=== PATIENT | male | born 1980 | race Caucasian/White ===

== ENCOUNTER 2018-07-03 02:57 | Emergency (ER) | payer OTHER, SELFPAY ==
[2018-07-03 03:01] VITALS: BP 145/85; PULSE 88; RESP 12; TEMP 36.8; O2SAT 100; BMI 21.1
[2018-07-03] MEDS: SODIUM CHLORIDE 0.9% 1,000 ML 1000 ML IV (03:25)
[2018-07-03 03:41] LABS: Add Manual Diff / Slide Review NO; Basophils Percent Auto 0.7 % (0-2); Eosinophils Percent Auto 2.8 % (2-4); Hematocrit 47.2 % (41-53); Hemoglobin 16.2 g/dL (13.5-17.5); Lymphocytes Percent Auto 30.9 % (25-40); Mean Corpuscular HGB Conc 34.3 % (30-36); Mean Corpuscular Hemoglobin 30.3 PG (26-34); Mean Corpuscular Volume 88.2 fL (80-100); Monocytes Percent Auto 8.3 % (3-14); Neutrophils Absolute Auto 3500 /uL (3000-5900); Neutrophils Percent Auto 57.3 % (50-75); Platelet Count 251 X10^3/uL (150-400); Red Blood Cell Count 5.35 X10^6/uL (4.5-5.9); Red Cell Distribution Width 12.4 % (11.6-14.8); White Blood Cell Count 6.1 X10^3/uL (4.5-11.0)
[2018-07-03 03:51] LABS: BUN Creatinine Ratio 18.6 (6-22); Blood Urea Nitrogen 13 mg/dL (9-20); Calcium 9.3 mg/dL (8.4-10.2); Carbon Dioxide 28 mmol/L (22-32); Chloride 105 mmol/L (98-107); Estimated Glomerular Filt Rate > 60.0 mL/min (>60); Glucose 101 mg/dL (70-100); HEMOLYSIS < 15 (0-50); Sodium 142 mmol/L (137-145)
[2018-07-03 04:00] VITALS: BP 126/85; PULSE 86; RESP 16; O2SAT 99
[2018-07-03 04:02] LABS: Troponin I < 0.012 ng/mL (0.01-0.034)
--- NOTE | 2018-07-03 04:25 | ED_ITS ---
HPI - Dizziness General Chief Complaint: Dizziness Stated Complaint: nausea numbness waist up 24 hrs+ Time Seen by Provider: 07/03/18 03:09 Source: patient Mode of arrival: ambulatory Limitations: no limitations History of Present Illness HPI Narrative: The patient was at work earlier tonight. He developed sudden onset of weakness and dizziness. He did not feel like he was going to pass out. He had no chest pain or palpitations. He denies dyspnea. This is happened recently before, but not to the severity. His significant other left him about 1 month ago with their child. He still sees the child. Since that time he has lost a significant amount of weight. He has significant insomnia. He finds himself crying at times. Regarding the dizziness, has lost his appetite, he is not drinking an appropriate amount of fluids. He works nights without appropriate rest. He has no prior history of depression or anxiety. He feels tremendously stressed. There are no obvious issues at work. Related Data Previous Rx's Medication Instructions Recorded sertraline [Zoloft] 50 mg PO DAILY #30 tab 07/03/18 Allergies Allergy/AdvReac Type Severity Reaction Status Date / Time No Known Drug Allergies Allergy Verified 07/03/18 03:07 Review of Systems Review of Systems All systems reviewed & are unremarkable except as noted in HPI and below Constitutional Denies chills, Reports fatigue, Denies fever(s), Reports lethargy, Reports poor appetite and Denies weakness Eyes Denies change in vision, Denies eye discharge, Denies irritation and Denies loss of vision ENT Ears, Nose, Mouth, and Throat: Denies sore throat and Denies throat swelling Cardiovascular Denies chest pain, Denies irregular heart rhythm, Denies lightheadedness, Denies palpitations, Denies dyspnea, Denies dyspnea on exertion and Denies orthopnea Respiratory Denies cough, Denies dyspnea, Denies dyspnea on exertion and Denies wheezing Gastrointestinal Gastrointestinal: Denies abdominal pain, Denies change in bowel habits, Denies diarrhea, Denies nausea and Denies vomiting Genitourinary Denies dysuria Musculoskeletal Denies back pain, Denies muscle weakness, Denies numbness and Denies tingling Integumentary/Breasts Denies erythema, Denies rash and Denies wounds Neurologic Denies loss of vision, Denies numbness, Denies tingling and Denies weakness Endocrine Reports fatigue and Denies palpitations Allergic/Immunologic Denies throat swelling and Denies wheezing PFSH Medical History Healthy adult (Acute) Social History Smoking Status: Never smoker alcohol intake: current substance use type: does not use Exam Initial Vital Signs Initial Vital Signs: Vital Signs Temperature 98.3 F 07/03/18 03:01 Pulse Rate 88 07/03/18 03:01 Respiratory Rate 12 07/03/18 03:01 Blood Pressure 145/85 H 07/03/18 03:01 Pulse Oximetry 100 07/03/18 03:01 Const General: cooperative, healthy appearing, comfortable, well developed, well groomed and anxious Nutritional Appearance: average body habitus Orientation: alert, awake and oriented x3 HENMT Mouth: oral mucosae normal Throat: posterior oropharynx normal Eyes General: appearance normal, both eyes and all related structures Eyelids: eyelids normal Conjunctivae: conjunctivae normal Sclera: sclerae normal Pupils: PERRL EOM: EOM intact bilaterally Neck Neck: trachea midline and No lymphadenopathy Thyroid: thyroid normal Chest Chest: No crepitus and other Resp Effort & Inspection: normal respiratory effort, able to speak in complete sentences, no respiratory distress and no use of accessory muscles Auscultation: clear to auscultation bilaterally, no rales, no rhonchi and no wheezes Cardio Rate: regular rate Rhythm: regular rhythm Heart Sounds: no click, no gallops, no murmurs and no rubs Pulses: normal peripheral pulses GI Inspection: non-distended Palpation: soft, no hepatosplenomegaly, No guarding, No pulsatile mass and No tender Auscultation: normal bowel sounds Back/Spine/Pelvis Back: No back tenderness and No CVA tenderness Skin General: no rashes or lesions noted and No petechiae Neuro General: alert, oriented x3, gait normal and no focal motor deficits Speech: speech normal Extrem General: full ROM, no pedal edema and no calf tenderness Psych Appearance: well kempt Mental Status: mental status grossly normal Speech and Movement: speech and movement normal Mood: anxious mood Affect: normal affect Attitude: cooperative Thought Process: normal Thought Content: no delusions, no hallucinations and no homicidality Judgment: judgment good Course Orders Ordered: ED Orders 07/03/18 03:10 EKG-12 Lead Stat 07/03/18 03:30 Basic Metabolic Panel Stat Complete Blood Count AUTO DIFF Stat Troponin I Stat Discontinued Medications Sodium Chloride (Normal Saline 0.9%) 1,000 mls @ 1,000 mls/hr IV BOLUS ONE Stop: 07/03/18 04:14 Last Infusion: 07/03/18 04:15 Dose: 0 mls/hr Admin: 07/03/18 03:25 Dose: 1,000 mls/hr Vital Signs - 8 hr 07/03/18 03:01 07/03/18 04:00 Temperature 98.3 F Pulse Rate 88 86 Respiratory Rate 12 16 Blood Pressure 145/85 H Blood Pressure [Left Arm] 126/85 Pulse Oximetry 100 99 MDM - Dizziness Lab Data Result diagrams: 07/03/18 03:30 07/03/18 03:30 Lab Results 07/03/18 07/03/18 Range/Units 03:30 03:30 WBC 6.1 (4.5-11.0) X10^3/uL RBC 5.35 (4.5-5.9) X10^6/uL Hgb 16.2 (13.5-17.5) g/dL Hct 47.2 (41-53) % MCV 88.2 (80-100) fL MCH 30.3 (26-34) PG MCHC 34.3 (30-36) % RDW 12.4 (11.6-14.8) % Plt Count 251 (150-400) X10^3/uL Neut % (Auto) 57.3 (50-75) % Lymph % (Auto) 30.9 (25-40) % [place] % (Auto) 8.3 (3-14) % Eos % (Auto) 2.8 (2-4) % Baso % (Auto) 0.7 (0-2) % Neut # (Auto) 3500 (8349-8341) /uL Sodium 142 (137-145) mmol/L Potassium 4.0 (3.4-5.1) mmol/L Chloride 105 (98-107) mmol/L Carbon Dioxide 28 (22-32) mmol/L BUN 13 (9-20) mg/dL Creatinine 0.70 (0.66-1.25) mg/dL Estimated GFR > 60.0 (>60) mL/min BUN/Creatinine Ratio 18.6 (6-22) Glucose 101 H (70-100) mg/dL Calcium 9.3 (8.4-10.2) mg/dL Troponin I < 0.012 (0.01-0.034) ng/mL ECG Data Attestation: I personally reviewed and interpreted this ECG as follows: (Normal sinus rhythm rate 85 bpm. Possible right ventricular conduction delay. Normal intervals. No acute ST T wave changes. No acute findings.) MDM Narrative Medical decision making narrative: The patient agrees that he is stressed, and that he feels depressed. He has no prior history of depression. His depression is likely situational with the departure of his significant other and his child. I have agreed to start him on Zoloft, he needs to seek a primary care doctor for follow through. Discharge Plan Departure Patient Disposition: Home Clinical Impression: Depression Discharge Date/Time: 07/03/18 04:33 Interventions: ED Discharge Assessment Last Done: 07/03/18 04:33 Instructions: Depression Activity Restrictions/Additional Instructions: Zoloft 50 mg daily Drink plenty of water, stay well hydrated. Return to the ER as needed. Establish care with a local physician, you should have someone re-evaluate you progress within about 2-3 weeks. Prescriptions: New sertraline [Zoloft] 50 mg tablet 50 mg PO DAILY Qty: 30 RF: 1 Stand Alone Forms: Work/School Restrictions
== END 2018-07-03 04:33 | disposition home or self-care (01) ==
PROVIDERS: Emergency Provider Emergency Medicine
DX: F32.9 Major depressive disorder, single episode, unspecified (principal)
CPT/HCPCS: 36591; 80048; 84484; 85025; 93005; 93010; 96360; 99283; 99284

== ENCOUNTER → 2020-12-06 09:07 | Outpatient (CLI) | payer OTHER, SELFPAY ==
[2020-12-06 10:34] LABS: Add Manual Diff / Slide Review NO; Basophils Absolute Auto 0 /uL (0-100); Basophils Percent Auto 0.3 % (0-2); Eosinophils Absolute Auto 100 /uL (0-450); Eosinophils Percent Auto 2.2 % (2-4); Hematocrit 52.6 % (41-53); Hemoglobin 17.5 g/dL (13.5-17.5); Lymphocytes Absolute Auto 1200 /uL (1100-4500); Lymphocytes Percent Auto 17.9 % (25-40); Mean Corpuscular HGB Conc 33.3 % (30-36); Mean Corpuscular Hemoglobin 30.7 PG (26-34); Mean Corpuscular Volume 92.3 fL (80-100); Monocytes Absolute Auto 400 /uL (0-900); Monocytes Percent Auto 6.7 % (3-14); Neutrophils Absolute Auto 4800 /uL (1500-7000); Neutrophils Percent Auto 72.9 % (50-75); Platelet Count 280 X10^3/uL (150-400); White Blood Cell Count 6.6 X10^3/uL (4.5-11.0)
[2020-12-06 10:43] LABS: Urine N gonorrhoeae NOT DETECTED
[2020-12-06 10:46] LABS: Urine Chlamydia DETECTED
[2020-12-06 11:01] LABS: Alanine Aminotransferase 42 IU/L (<50); Albumin Globulin Ratio 1.3 (1.0-2.8); Alkaline Phosphatase 88 U/L (38-126); Aspartate Aminotransferase 39 IU/L (17-59); BUN Creatinine Ratio 23.2 (6-22); Bilirubin Total 0.7 mg/dL (0.2-1.3); Blood Urea Nitrogen 16 mg/dL (9-20); Carbon Dioxide 33 mmol/L (22-32); Chloride 100 mmol/L (98-107); Creatine Kinase 108 U/L (55-170); Estimated Glomerular Filt Rate > 60.0 mL/min (>60); Glucose 88 mg/dL (70-100); HEMOLYSIS < 15 (0-50); Lipase 62 U/L (23-300); Potassium 3.9 mmol/L (3.4-5.1); Sodium 138 mmol/L (137-145)
[2020-12-06 11:13] LABS: Troponin I < 0.012 ng/mL (0.01-0.034)
[2020-12-06 11:16] LABS: CKMB % Relative Index 2.3 % (1.5-5.0); Creatine Kinase MB 2.44 ng/mL (<2.37)
[2020-12-06 11:46] LABS: Hepatitis B Surface Antigen NEGATIVE s/c (NEGATIVE)
[2020-12-06 12:03] LABS: HIV 1 & 2 Ab/Ag 4th Gen Combo NEGATIVE (NEGATIVE); Hep C Virus Ab w/Reflex Quant NEGATIVE s/c (NEGATIVE)
[2020-12-07 06:18] LABS: HSV 2 IGG AB < 0.91 index (0.00-0.90); HSV1IGG < 0.91 index (0.00-0.90)
[2020-12-07 07:40] LABS: RPR Screen Non Reactive (Non Reactive)
== END ==
PROVIDERS: PCP Family Medicine; Visit Provider Nurse Practitioner
DX: R10.13 Epigastric pain (principal); Z11.3 Encounter for screening for infections with a predominantly sexual mode of transmission
CPT/HCPCS: 36415; 80053; 82550; 82553; 83690; 84484; 85025; 86592; 86695; 86696; 86803; 87340; 87389; 87491; 87591

== ENCOUNTER 2021-10-09 03:31 | Emergency (ER) | payer OTHER, SELFPAY ==
[2021-10-09 03:47] VITALS: BP 161/91; PULSE 86; RESP 16; TEMP 36.6; O2SAT 98; BMI 22.7
--- NOTE | 2021-10-09 03:58 | ED.WOUNDLAC ---
HPI - Wound/Laceration General Chief Complaint: Wound/Laceration Stated Complaint: left knee injured at work/glass in knee Time Seen by Provider: 10/09/21 03:48 Source: patient Mode of arrival: Ambulatory History of Present Illness HPI narrative: 40-year-old healthy male who presents with foreign object in his left knee. He says he knelt down at work and felt glass go in his knee. No numbness tingling or weakness. He can still feel it. Related Data Previous Rx's Medication Instructions Recorded sertraline 50 mg tablet (Zoloft) 50 mg PO DAILY #30 tab 07/03/18 azithromycin 500 mg tablet 1,000 mg PO ONCE #2 tab 12/06/20 Allergies Allergy/AdvReac Type Severity Reaction Status Date / Time No Known Drug Allergies Allergy Verified 12/06/20 08:55 Review of Systems Review of Systems Narrative: GENERAL: Denies chills,fever HEENT: Denies throat pain RESPIRATORY: Denies dyspnea, cough, wheezing CARDIOVASCULAR: Denies chest pain, palpitations GASTROINTESTINAL: Denies nausea, vomiting MUSCULOSKELETAL: Denies extremity pain, injury SKIN: See HPI NEUROLOGIC: Denies weakness, dizziness, headache, numbness 8 point review of systems is negative except for those stated above and HPI Patient History Medical History Healthy adult Social History (Updated 07/03/18 @ 06:04 by Elaido Rawls MD) Smoking Status: Never smoker alcohol intake: current substance use type: does not use Smoking Status: Never smoker alcohol intake frequency: a few times a week Substance Use Type: does not use Exam Initial Vital Signs Initial Vital Signs: Vital Signs Temperature 97.9 F 10/09/21 03:47 Pulse Rate 86 10/09/21 03:47 Respiratory Rate 16 10/09/21 03:47 Blood Pressure 161/91 H 10/09/21 03:47 Pulse Oximetry 98 10/09/21 03:47 GENERAL: Well-appearing, well-nourished and in no acute distress. CARDIOVASCULAR: peripheral pulses in tact, cap refill <2 sec RESPIRATORY: No respiratory distress, speaks in full sentences without difficulty EXTREMITIES: Normal range of motion, no clubbing or edema. Neurovascularly intact NEUROLOGICAL: Cranial nerves II through XII grossly intact. Normal gait and speech. SKIN: Small 1 cm laceration over left patellar area foreign object is felt underneath the skin but not seen. Procedures Foreign Body OTHER Foreign Body Removal Site: lower extremity (Left knee patellar) Description of foreign body: other (Glass) Sedation/Analgesia: none Technique: manual removal, removal with forceps and incision made to facilitate removal Confirmed by:: direct visualization Complications: none Post-procedure exam: awake, alert Neurovascular: normal distal pulse, distal light touch sensation intact and distal motor function normal Laceration Repair Laceration 1: Site: lower extremity Side (If applicable): left Size (cm): 1 Description: stellate Depth: simple, single layer Local Anesthetic: lidocaine 1% Amount of anesthesia used (mL): 4 Pre-repair: wound explored, irrigated extensively and deep structures intact Skin layer closed with: nylon Size (cm): 4-0 Number of sutures: 1 Technique: simple, interrupted Course Orders Ordered: Discontinued Medications Diphtheria/Tetanus/Acell Pertussis (Tet,Diph,Pertuss(Acell),Vac/Pf 0.5 Ml Syringe) 0.5 ml IM .ONCE ONE Stop: 10/09/21 04:02 Last Admin: 10/09/21 04:06 Dose: 0.5 ml Documented by: Lidocaine HCl (Lidocaine 1% (Pf)) 4 ml SUBCUT NOW ONE Stop: 10/09/21 04:02 Last Admin: 10/09/21 04:05 Dose: 4 ml Documented by: Vital Signs Vital signs: Vital Signs - 8 hr 10/09/21 03:47 10/09/21 04:44 Temperature 97.9 F Pulse Rate 86 81 Respiratory Rate 16 17 Blood Pressure 161/91 H 153/84 H Pulse Oximetry 98 97 MDM - Wound/Laceration MDM Narrative Medical decision making narrative: Patient had a piece of glass in the left knee that was felt is superficially. Incision was made to help guide glass out was eventually pushed out and forceps used to grasp it. 1 suture is placed for closure. At this time no need for antibiotics however I did educate patient on signs and symptoms of infection. Discharge Plan Departure Patient Disposition: Home Clinical Impression: Other foreign body or object entering through skin, initial encounter Instructions: DI for Removal of Foreign Body From Skin Activity Restrictions/Additional Instructions: *You have been diagnosed with foreign body removed from skin *What to do: Glass was removed. 1 suture was placed. Please have suture removed in about 5 days either walk-in clinic or you may return to the emergency department. Please follow L&I instructions as dictated by your employment. *Continue to take medications as directed *Follow up with your primary care provider in 2-3 days *Return to ER if you should have redness pus swelling pain or any new, worsening or concerning symptoms Prescriptions: No Action azithromycin 500 mg tablet 1,000 mg PO ONCE Qty: 2 0RF Rx Instructions: take all pills at once with food sertraline [Zoloft] 50 mg tablet 50 mg PO DAILY Qty: 30 1RF Referrals: Rylan Thomson DO [Primary Care Provider] -
[2021-10-09] MEDS: LIDOCAINE 1% (PF) 4 ML SUBCUT (04:05)
[2021-10-09] MEDS: TET,DIPH,PERTUSS(ACELL),VAC/PF 0.5 ML SYRINGE IM (04:06)
[2021-10-09 04:44] VITALS: BP 153/84; PULSE 81; RESP 17; O2SAT 97
== END 2021-10-09 04:45 | disposition home or self-care (01) ==
PROVIDERS: Emergency Provider Emergency Medicine; PCP Family Medicine
DX: S80.252A Superficial foreign body, left knee, initial encounter (principal); Z23 Encounter for immunization; W25.XXXA Contact with sharp glass, initial encounter; Y99.0 Civilian activity done for income or pay; Y93.89 Activity, other specified
CPT/HCPCS: 10120; 90471; 99282; 99283; 90715

== ENCOUNTER 2022-12-10 20:01 | Emergency (ER) | payer OTHER, SELFPAY ==
[2022-12-10 20:08] VITALS: BP 159/85; PULSE 88; RESP 18; TEMP 36.2; O2SAT 98; BMI 22.4
--- NOTE | 2022-12-10 21:05 | ED_ITS ---
HPI - Back Pain/Injury General Chief Complaint: Back Pain/Injury Stated Complaint: lt. side abd. bulg/back pain Time Seen by Provider: 12/10/22 20:58 Source: patient Limitations: no limitations History of Present Illness HPI Narrative: This is a 42-year-old male with complaint of low back pain that started last Wednesday the 06 of December. Patient states he was at work he went to [employer] and felt pain in the lower back particularly on the left side. It has been persistent. He was seen at the walk-in clinic got a shot of Toradol which he states was helpful but it has been persisting. He has been trying Tylenol and ibuprofen without much improvement. States he also noticed a bulge short in the left lower abdomen just above the inguinal area. He states it has been intermittent it has not been painful. He denies fevers chills, no chest pain or shortness breath no nausea or vomiting no issues with bowel movements. States no pain radiating down his leg. He states pain sort of comes around from the back towards the front. No numbness or tingling. No loss of bowel or bladder control. No retention. Patient denies any saddle anesthesia. Patient notes he is had some pain on and off in his back in the past but nothing persistent this long. He has seen a chiropractor before. He is never had any surgeries or interventions. He has a metal in his wrist. He states no daily medications. Denies any drug allergies. No tobacco, occasional alcohol, no illicit. He is accompanied with his girlfriend. Dr. Thomson is his primary care. He states this occurred at work at [employer]. Related Data Previous Rx's Medication Instructions Recorded sertraline 50 mg tablet (Zoloft) 50 mg PO DAILY #30 tabs 07/03/18 azithromycin 500 mg tablet 1,000 mg PO ONCE #2 tabs 12/06/20 cyclobenzaprine 10 mg tablet 10 mg PO TID PRN muscle spasm #10 12/10/22 tabs meloxicam 7.5 mg tablet 7.5 mg PO BID PRN pain #20 tabs 12/10/22 Allergies Allergy/AdvReac Type Severity Reaction Status Date / Time No Known Drug Allergies Allergy Verified 12/07/22 17:08 Review of Systems Review of Systems ROS Unobtainable: All systems reviewed & are unremarkable except as noted in HPI and below Patient History Medical History Healthy adult Social History Smoking Status: Never smoker alcohol intake: current substance use type: does not use Smoking Status: Never smoker alcohol intake frequency: a few times a week Substance Use Type: does not use Exam Narrative Exam Narrative: GENERAL: Alert and oriented x three, thin male in [id number] distress. HEENT: Head normocephalic, atraumatic, EOMI, pupils reactive, face symmetric, moist mucous membranes NECK: Supple, full range of motion CARDIOVASCULAR: Regular rate and rhythm without murmurs, rubs or gallops. RESPIRATORY: Breath sounds equal bilaterally, no wheezes rales or rhonchi. ABDOMEN: Soft, nontender. Normoactive bowel sounds all 4 quadrants. No guarding or rebound, rigidity, no mass, no obvious defect or hernia noted. No inguinal hernia. : No CVA tenderness BACK: No cervical, thoracic or lumbar vertebral point tenderness. Patient has slightly decreased range of motion. Patient's gait is slightly until. Rectal exam is deferred. Muscle strength is 5/5 in lower extremities, DTRs are 2/4 and lower extremities. Dorsalis pedis and tibialis pulses are 2+ and lower extremities. Sensation is intact in the lower extremities. EXTREMITIES: Normal range of motion, no clubbing or edema. Neurovascularly intact NEUROLOGICAL: Cranial nerves II through XII grossly intact. Moving all extremities SKIN: Warm, dry, no petechiae, no rashes or lesions. Initial Vital Signs Initial Vital Signs: Vital Signs Temperature 97.1 F L 12/10/22 20:08 Pulse Rate 88 12/10/22 20:08 Respiratory Rate 18 12/10/22 20:08 Blood Pressure 159/85 H 12/10/22 20:08 Pulse Oximetry 98 12/10/22 20:08 Oxygen Delivery Method 12/10/22 20:08 Course Orders Ordered: ED Orders 12/10/22 21:27 XR lumbar spine 2-3V Stat Discontinued Medications Diazepam (Diazepam 5 Mg Tablet) 5 mg PO NOW ONE Stop: 12/10/22 21:20 Last Admin: 12/10/22 21:35 Dose: 5 mg Documented By: GC Ketorolac Tromethamine (Ketorolac 30 Mg/Ml Vial) 30 mg IM NOW ONE Stop: 12/10/22 21:20 Last Admin: 12/10/22 21:35 Dose: 30 mg Documented By: CAITLIN Vital Signs Vital signs: Vital Signs - 8 hr 12/10/22 20:08 12/10/22 22:35 Temperature 97.1 F L 98 F Pulse Rate 88 70 Respiratory Rate 18 16 Blood Pressure 159/85 H 122/78 Pulse Oximetry 98 98 Oxygen Delivery Method Room Air Room Air MDM - Back Pain/Injury Imaging Data lspine xray: Radiologist's Impression: Travis Pritchett??42??M??1980 ? Allergy/Adv: No Known Drug Allergies Close Lumbar Spine X-Ray (Signed) Becka Montemayor - 12/10/22 EKG Rpt. 12/06/20 Launch?[place] [address] XRay Report Signed Patient: Travis Pritchett MR#: [id number] : 1980 Acct:[id number] Age/Sex: 42 / M Date of Service: 12/10/22 Loc: ED Accession Number: [id number] ?? Procedure: XR lumbar spine 2-3V Ordering Provider: Elo Disla D.O. PROCEDURE:? XR LUMBAR SPINE 2-3V ? INDICATIONS:? acute on chronic back pain ? TECHNIQUE:? 3 views of the lumbar spine were acquired.? ? COMPARISON:? None. ? FINDINGS:? ? Bones:? 5 jjf-led-dobwgej vertebrae are present.? There is normal bony alignment.? Mild multilevel posterior disc height loss.? No vertebral body compression fractures.? No suspicious bony lesions.? ? Soft tissues:? Overlying bowel gas pattern is normal.? No suspicious soft tissue calcifications.? ? ? IMPRESSION:? ? 1. Mild multilevel disc degeneration. ? 2. No visible fractures or pathologic subluxation.? ? ? Dictated by: Becka Montemayor M.D. on 12/10/2022 at 22:08 ? ? Approved by: Becka Montemayor M.D. on 12/10/2022 at 22:08?? MDM Narrative Medical decision making narrative: This is a 42-year-old male with acute on chronic left low back pain. Patient does not have any red flag symptoms. It is work-related he is had some persistent issues in the past x-ray was ordered. Patient was concerned about bulge sounds like a hernia he states it sort of slipped back in while he has been here I am not able to easily palpate it but he may have a small hernia. We discussed need for follow-up if persisting or he notices it again and return precautions, including red flag symptoms. Discharge Plan Departure Patient Disposition: Home Clinical Impression: Lumbar back pain Instructions: DI for Back Strain or Sprain Activity Restrictions/Additional Instructions: Please follow-up for recheck. Please call for an appointment. You can take Tylenol up to a 1000 mg every 6 hours. You can take Meloxicam with Tylenol, 1 tablet every 12 hours as needed for pain. You may take Flexeril 1 tablet every 8 hours as needed for spasm. This medication can make you sleepy do not drive, form has activities or make any major decisions while taking it. Prescription sent to [facility] in [place]. Please return for rapidly worsening symptoms loss of sensation, new weakness inability to lift or move your leg, loss of bowel or bladder control, lumps or masses that are stuck or protruding and are painful, persistent vomiting or other new or concerning changes. Prescriptions: New meloxicam 7.5 mg tablet 7.5 mg PO BID PRN (Reason: pain) Qty: 20 0RF cyclobenzaprine 10 mg tablet 10 mg PO TID PRN (Reason: muscle spasm) Qty: 10 0RF No Action azithromycin 500 mg tablet 1,000 mg PO ONCE Qty: 2 0RF Rx Instructions: take all pills at once with food sertraline [Zoloft] 50 mg tablet 50 mg PO DAILY Qty: 30 1RF Referrals: Rylan Thomson DO [Primary Care Provider] - Stand Alone Forms: Patient Portal/API, Work Release Note
--- NOTE | 2022-12-10 21:27 | DI.RAD.S_ITS ---
PROCEDURE: XR LUMBAR SPINE 2-3V INDICATIONS: acute on chronic back pain TECHNIQUE: 3 views of the lumbar spine were acquired. COMPARISON: None. FINDINGS: Bones: 5 [id number] vertebrae are present. There is normal bony alignment. Mild multilevel posterior disc height loss. No vertebral body compression fractures. No suspicious bony lesions. Soft tissues: Overlying bowel gas pattern is normal. No suspicious soft tissue calcifications. IMPRESSION: 1. Mild multilevel disc degeneration. 2. No visible fractures or pathologic subluxation. Dictated by: Becka Montemayor M.D. on 12/10/2022 at 22:08 Approved by: Becka Montemayor M.D. on 12/10/2022 at 22:08
[2022-12-10] MEDS: KETOROLAC 30 MG/ML VIAL IM (21:35)
[2022-12-10] MEDS: diazePAM 5 MG TABLET PO (21:35)
[2022-12-10 22:35] VITALS: BP 122/78; PULSE 70; RESP 16; TEMP 36.6; O2SAT 98
--- NOTE | 2022-12-11 17:48 | PC.NURSE ---
Received call from [facility] requesting report of imaging completed during [facility] ED visit. Faxed to [phone] for continuity of care
== END 2022-12-10 21:35 | disposition home or self-care (01) ==
PROVIDERS: Emergency Provider Emergency Medicine; PCP Family Medicine
DX: S39.012A Strain of muscle, fascia and tendon of lower back, initial encounter (principal); X50.9XXA Other and unspecified overexertion or strenuous movements or postures, initial encounter
CPT/HCPCS: 72100; 96372; 99283; J1885

== ENCOUNTER 2025-01-19 18:34 | Emergency (ER) | payer OTHER, SELFPAY ==
[2025-01-19] VITALS (7 sets, daily range): BP systolic 126–148; BP diastolic 77–83; PULSE 83–109; RESP 16–20; TEMP 37.9–39.6; O2SAT 95–97; BMI 21.1
[2025-01-19] MEDS: ACETAMINOPHEN 325 MG TABLET 975 MG PO (18:50)
[2025-01-19 19:25] LABS: Influenza A - CEPHEID Flu A NEGATIVE (NEGATIVE); Influenza B - CEPHEID Flu B POSITIVE (NEGATIVE); Respiratory Syncytial Virus Negative (Negative)
[2025-01-19 19:32] LABS: COVID-19 CEPHEID 4-PLEX PCR Negative (Negative)
--- NOTE | 2025-01-19 21:37 | ED_ITS ---
HPI - General Adult General Chief complaint: Upper Respiratory Symptoms Stated complaint: fever, coughing, weak, BLAKE Time Seen by Provider: 01/19/25 20:35 Source: patient Mode of arrival: Ambulatory History of Present Illness HPI narrative: Otherwise healthy 44-year-old gentleman with viral symptoms for 5-6 days. Initially did have some fevers was feeling better went back to work today and got significantly worse. Had a fever to 103 which is higher than original fevers and increasingly feeling weak. More productive cough, he has not having chest pain, abdominal pain, diarrhea. Related Data Previous Rx's Medication Instructions Recorded sertraline 50 mg tablet (Zoloft) 50 mg PO DAILY #30 tabs 07/03/18 azithromycin 500 mg tablet 1,000 mg (2 x 500 mg) PO ONCE #2 12/06/20 tabs cyclobenzaprine 10 mg tablet 10 mg PO TID PRN muscle spasm #10 12/10/22 tabs meloxicam 7.5 mg tablet 7.5 mg PO BID PRN pain #20 tabs 12/10/22 benzonatate 200 mg capsule 200 mg PO BID-TID PRN cough #14 01/19/25 caps doxycycline hyclate 100 mg capsule 100 mg PO BID #20 caps 01/19/25 Allergies Allergy/AdvReac Type Severity Reaction Status Date / Time No Known Drug Allergies Allergy Verified 12/07/22 17:08 Review of Systems Review of Systems Narrative: Pertinent positive and negative findings as per HPI Patient History Medical History Healthy adult Social History Smoking Status: Never smoker alcohol intake: current substance use type: does not use Smoking Status: Never smoker alcohol intake frequency: a few times a week Exam Initial Vital Signs Initial Vital Signs: Vital Signs Temperature 103.2 F H 01/19/25 18:39 Pulse Rate 109 H 01/19/25 18:39 Respiratory Rate 20 01/19/25 18:39 Blood Pressure 148/77 H 01/19/25 18:39 Pulse Oximetry 95 01/19/25 18:39 Oxygen Delivery Method Room Air 01/19/25 18:39 General: Appears uncomfortable but able to cooperate completely with exam HEENT: Moist mucous membranes, mildly injected sclera with reactive pupils, Neck: No cervical adenopathy Respiratory: Lungs without wheeze but rhonchi appreciated in the left mid axillary line Cardiac: Regular rate and rhythm no murmurs no bruits Abdomen: Soft, nontender, no rebound or guarding, no flank pain Skin: Flushed, diaphoretic Neurologic: Grossly neurologically intact with no obvious asymmetries or abnormalities Extremities: No trauma, well perfused Psych: Cooperative, appropriate insight and affect Course Orders Ordered: ED Orders 01/19/25 18:42 Covid-19 + FLU A/B + RSV - PCR Stat Discontinued Medications Acetaminophen (Acetaminophen 325 Mg Tablet) 975 mg PO NOW ONE Stop: 01/19/25 18:45 Last Admin: 01/19/25 18:50 Dose: 975 mg Documented By: KAYLAH Vital Signs Vital signs: Vital Signs - 8 hr 01/19/25 18:39 01/19/25 18:50 01/19/25 19:29 Temperature 103.2 F H 103.2 F H 102.8 F H Pulse Rate 109 H Respiratory Rate 20 Blood Pressure 148/77 H Pulse Oximetry 95 Oxygen Delivery Method Room Air 01/19/25 20:40 01/19/25 20:42 01/19/25 21:00 Temperature 100.3 F H 100.3 F H Pulse Rate 86 83 Respiratory Rate 16 Blood Pressure 138/82 126/79 Pulse Oximetry 97 97 Oxygen Delivery Method Medical Decision Making Lab Data Labs: Lab Results 01/19/25 Range/Units 18:42 SARS-CoV-2 (PCR) Negative (Negative) Influenza A (RT-PCR) Flu a negative (NEGATIVE) Influenza B (RT-PCR) Flu b positive H (NEGATIVE) RSV (PCR) Negative (Negative) MDM Narrative Medical decision making narrative: Otherwise healthy 44-year-old gentleman with viral syndrome lasting approximately a week and then today temperatures to 103 increasing cough and again feeling worse. He is testing positive for influenza B and clinical exam suggests developing left-sided secondary bacterial pneumonia. Recommended doxycycline for antibiotics for post viral bacterial pneumonia, Tessalon Perles were given. Reviewed with him recommendations and concerns. Vital signs and physical exam do not suggest sepsis and additional imaging and blood work are not indicated at this time. He has not requiring any oxygen he is able to eat and drink without difficulty. He will be discharged home Discharge Plan Departure Patient Disposition: Home Clinical Impression: Bacterial lobar pneumonia, Influenza Instructions: DI for Pneumonia -- Adult Activity Restrictions/Additional Instructions: Thank you for coming in today You are testing positive for influenza B. This is the virus that you are almost over until bacteria decided to take over today. A viral symptoms we will continue to improve and with the recurrent high fever today the cough and findings on your clinical exam, course of antibiotics is indicated for a post viral bacterial pneumonia. I have given you a work note Using 400 mg of ibuprofen (2 [id number] pills) and 1 Tylenol every 6 hours can be very helpful in controlling pain. Please complete the entire course of doxycycline, antibiotic I have also given you a prescription for Tessalon Perles to help suppress the cough If you find that you are getting worse or develop any new symptoms, please feel free to return to the emergency department for further evaluation. Prescriptions were sent to [facility] in [place] Prescriptions: New doxycycline hyclate 100 mg capsule 100 mg PO BID Qty: 20 0RF benzonatate 200 mg capsule 200 mg PO BID-TID PRN (Reason: cough) Qty: 14 0RF No Action azithromycin 500 mg tablet 1,000 mg PO ONCE Qty: 2 0RF Rx Instructions: take all pills at once with food sertraline [Zoloft] 50 mg tablet 50 mg PO DAILY Qty: 30 1RF meloxicam 7.5 mg tablet 7.5 mg PO BID PRN (Reason: pain) Qty: 20 0RF cyclobenzaprine 10 mg tablet 10 mg PO TID PRN (Reason: muscle spasm) Qty: 10 0RF Referrals: Rylan Thomson DO [Primary Care Provider] - Stand Alone Forms: Patient Portal/API/Survey
[2025-01-19] MEDS: DOXYCYCLINE HYCLATE 100 MG TABLET PO (21:48)
[2025-01-19] MEDS: BENZONATATE 100 MG CAPSULE PO (21:48)
== END 2025-01-19 22:06 | disposition home or self-care (01) ==
PROVIDERS: Emergency Provider Emergency Medicine; PCP Family Medicine
DX: J10.08 Influenza due to other identified influenza virus with other specified pneumonia (principal); J12.89 Other viral pneumonia
CPT/HCPCS: 0241U; 99283